=== PATIENT | female | born 1960 | race Caucasian/White ===

== ENCOUNTER 2023-09-22 06:00 | Day surgery (SDC) | payer OTHER ==
[~2023-09-22 06:00] MED LIST: Lactated Ringers 1,000 ML IV SCH; Morphine 8 MG, EPINEPHrine 0.3 MG, Cefuroxime 750 MG, Ketorolac 30 MG, Sodium Chloride ... PRN; Sodium Chloride 0.9% 10 ML Syringe FLUSH PRN; Sodium Chloride 0.9% 10 ML Syringe FLUSH SCH
[2023-09-22] MEDS ORDERED: Tranexamic Acid 1,000 MG/10 ML Vial ONE (06:23)
[2023-09-22] MEDS ORDERED: Vancomycin 1 GM SDV ONE (06:23)
[2023-09-22] MEDS ORDERED: fentaNYL 100 MCG/2 ML SDV ONE (06:36)
[2023-09-22] MEDS ORDERED: Propofol 200 MG/20 ML SDV ONE ×2 (06:36→08:30)
[2023-09-22] MEDS ORDERED: ceFAZolin 2 GM Vial ONE (06:36)
[2023-09-22] MEDS ORDERED: Lidocaine 2% 5 ML SDV ONE (06:36)
[2023-09-22] MEDS ORDERED: Midazolam 1 MG/ML 2 ML SDV ONE (06:45)
[2023-09-22] MEDS ORDERED: Ondansetron 4 MG/2 ML SDV IVPUSH PRN (07:14)
[2023-09-22] MEDS ORDERED: fentaNYL 100 MCG/2 ML SDV IVPUSH PRN (07:14)
[2023-09-22] MEDS ORDERED: HYDROmorphone 0.5 MG/0.5 ML Syringe IVPUSH PRN (07:14)
[2023-09-22] MEDS ORDERED: ePHEDrine 50 MG/ML SDV ONE (07:45)
[2023-09-22] MEDS ORDERED: Lactated Ringers 1,000 ML IV ONE (08:15)
== END 2023-09-22 13:35 | disposition home or self-care (01) ==
LOC: JD.SDS 06:00
PROVIDERS: ATTEND Orthopaedic Surgery
DX: M16.12 Unilateral primary osteoarthritis, left hip (principal); E78.00 Pure hypercholesterolemia, unspecified; F32.A Depression, unspecified; F41.9 Anxiety disorder, unspecified; Z79.899 Other long term (current) drug therapy; Z88.0 Allergy status to penicillin
CPT/HCPCS: 0055T; 27130; 36415; 73501; 86850; 86900; 86901; 97116; 97161; C1713; C1776; J0171; J0690; J0697; J1885; J2250; J2270; J2704; J3010; J3370; J7030; J7120; 01214; J3490